=== PATIENT | female | born 1990 | race Caucasian/White ===

== ENCOUNTER 2016-11-27 17:33 | Day surgery (SDC) | payer OTHER, MEDICAID ==
[~2016-11-27] VITALS: Ht 157.5 cm; Wt 61.7 kg
[~2016-11-27 17:33] MED LIST: AUGMENTIN 875 M1 TAB PO; COLACE100 MG PO; DERMOPLAST PAIN78 GM TOP; LAN-O-SOOTHE7 GM TOP; MOTRIN800 MG PO
== END 2016-11-27 19:09 | disposition short-term general hospital (02) ==
LOC: SURGOP 17:33
PROC: 10D17ZZ Extraction of Products of Conception, Retained, Via Natural or Artificial Opening (ICD-10-PCS; principal; 2016-11-27)
DX: O02.1 Missed abortion (principal); F17.210 Nicotine dependence, cigarettes, uncomplicated; Z88.2 Allergy status to sulfonamides
CPT/HCPCS: J0131; J0690; J1885; J2250; J2765; J3010